=== PATIENT | male | born 1965 | race Caucasian/White ===

== ENCOUNTER 2024-08-30 09:34 | Outpatient (CLI) | payer BC, SELFPAY ==
--- OUTSIDE RECORDS SUMMARY | 2024-08-30 10:30 | XMS_ITS | Clinical Summary ---
Author Organization [facility] [address] Address [address] [place] [address] Phone Care Team Providers Care Production Welding Supervisor Name Role Phone Kerwin Sanz DO Primary Care Provider Allergies No known active allergies Medications aspirin (ANH) 81 mg Oral Tab Take 81 mg by mouth daily. Active atorvastatin (LIPITOR) 40 mg Oral tablet Take 40 mg by mouth Daily LATE. Active amLODIPine (Norvasc) 5 mg tablet Take 1 Tablet (5 mg) by mouth daily. 30 Tablet 7 02/22/2020 Active chlorthalidone (HYGROTON) 25 mg tablet Take 0.5 Tablets (12.5 mg) by mouth daily. 30 Tablet 7 02/22/2020 Active metoprolol succinate (TOPROL XL) 50 mg Extended Release 24 hour tablet TAKE 1 TABLET BY MOUTH EVERY DAY 90 Tablet 3 04/03/2022 Active Active Problems Patient Care Coordination No te Formatting of this note migh t be different from the original. Bunk Assembler--Dr. Emma Kendrick MD--Bunk Assembler ([facility] @ ) Problem Noted Date Diagnosed Date Palpitations 08/03/2012 Chest pain on exertion 08/03/2012 Hyperlipidemia with target LDL less than 100 12/2010 MVP (mitral valve prolapse) 07/24/2010 HTN (hypertension), benign 07/24/2010 BACK (dyspnea on exertion) 07/24/2010 Family History Medical History Relation Name Comments Cardiomyopathy Father Relation Name Status Comments Father Alive Mother Alive Social History Tobacco Use Types Packs/Day Years Used Date Smoking Tobacco: Never Smokeless Tobacco: Never Alcohol Use Standard Drinks/Week Comments Not Asked 0 (1 standard drink = 0.6 oz pur e alcohol) Sex and Gender Information Value Date Recorded Sex Assigned at Not on file 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 Gender Identity Not on file Sexual Orientation Not on file Last Filed Vital Signs Vital Sign Reading Time Taken Comments Blood Pressure 170/80 02/22/2020 3:44 PM CDT Pulse 91 02/22/2020 3:44 PM CDT Temperature 37.3 C (99.1 F) 02/22/2020 3:44 PM CDT Respiratory Rate - - Oxygen Saturation 97% 02/22/2020 3:44 PM CDT Inhaled Oxygen Concentration - - Weight 89.4 kg (197 lb) 02/22/2020 3:44 PM CDT Height 177.8 cm (5' 10 ) 02/22/2020 3:44 PM CDT Body Mass Index 28.27 02/22/2020 3:44 PM CDT Plan of Treatment Health Maintenance Due Date Last Done Comments DTAP/TDAP/TD VACCINES (1 - Tdap) 1982 COLORECTAL SCREENING 01/03/2008 Colorectal Cancer Screening 01/03/2008 FIT-DNA Q 3 years 01/03/2008 FIT/FOBT Q 1 year 01/03/2008 Flex Sig/CT Colonography Q 5 years 01/03/2008 ZOSTER VACCINE (1 of 2) 2013 INFLUENZA VACCINE (#1) 2023 RSV VACCINE (60+ or ) (1 - 1-dose 75+ series) 2038 PNEUMOCOCCAL VACCINE 0-49 YEARS Aged Out No longer eligible based on patient's age to complete this topic Insurance [facility] BLUE ACCESS CHOICE Care Teams Production Welding Supervisor Relationship Specialty Start Date End Date Kerwin Sanz DO PCP - General 05/04/15
[2024-08-30 19:07] LABS: Basophils Percent Auto 0.7 % (0.2-1.2); Eosinophils Absolute Auto 0.1 K/mm3 (0-0.3); Hematocrit 46.5 % (42.0-52.0); Hemoglobin 15.3 g/dL (14.0-18.0); Immature Granulocyte Absolute 0.01 K/mm3 (0.00-0.031); Immature Granulocyte Percent A 0.2 % (0-0.5); Lymphocytes Absolute Auto 1.81 K/mm3 (0.9-3.2); Lymphocytes Percent Auto 39.3 % (18.3-44.2); Mean Corpuscular HGB Conc 32.9 g/dl (32-36); Mean Corpuscular Hemoglobin 30.8 pg (26-34); Mean Corpuscular Volume 93.6 fl (80-100); Mean Platelet Volume 11.2 fl (7.4-10.4); Monocytes Absolute Auto 0.4 K/mm3 (0.1-0.6); Monocytes Percent Auto 8.9 % (2.6-8.5); Neutrophils Absolute Auto 2.2 K/mm3 (1.3-6.7); Neutrophils Percent Auto 47.9 % (45.5-73.1); Platelet Count Result 306 k/mm3 (150-375); Red Blood Count 4.97 M/mm3 (4.6-6.20); Red Cell Distribution Width 11.8 % (11.5-14.5); White Blood Count 4.6 K/mm3 (4.5-10.0)
[2024-08-30 19:30] LABS: Alanine Aminotransferase 94 U/L (6-50); Albumin Level 4.4 g/dL (3.5-5.1); Alkaline Phosphatase 76 U/L (38-126); Anion Gap 8 mmol/L (4-12); Aspartate Amino Transferase 93 U/L (17-59); Bilirubin,Total 0.9 mg/dL (0.2-1.3); Blood Urea Nitrogen 22 mg/dL (9-20); Calcium 9.4 mg/dL (8.4-10.2); Carbon Dioxide 30 mmol/L (22-30); Chloride 104 mmol/L (98-107); Cholesterol 175 mg/dL (0-200); Estimated Glomerular Filt Rate > 60; Glucose 92 mg/dL (65-110); HDL Direct 36 mg/dL; Potassium 4.7 mmol/L (3.4-5.0); Sodium 142 mmol/L (137-145); Triglycerides 95 mg/dL (<150)
[2024-08-30 19:45] LABS: LDL Cholesterol Direct 115 mg/dL
[2024-08-30 20:09] LABS: Prostate Specific Antigen 1.4 ng/mL (< OR = 4.0)
== END 2024-08-30 09:35 | disposition home or self-care (01) ==
LOC: ANHGOSHLAB 09:36
PROVIDERS: PCP Internal Medicine; Visit Provider Clinical Nurse Specialist
DX: E78.5 Hyperlipidemia, unspecified (principal); I10 Essential (primary) hypertension; R73.01 Impaired fasting glucose; I34.1 Nonrheumatic mitral (valve) prolapse; Z13.228 Encounter for screening for other metabolic disorders; Z12.5 Encounter for screening for malignant neoplasm of prostate
CPT/HCPCS: 36415; 80053; 80061; 83036; 84153; 84443; 85025; G0103

== ENCOUNTER 2024-10-12 09:51 | Outpatient (CLI) | payer BC, SELFPAY ==
--- OUTSIDE RECORDS SUMMARY | 2024-10-12 09:55 | XMS_ITS | Continuity of Care Document ---
Author Organization [facility] Address [address] [place] [address] Phone Care Team Providers Care Tomahawk Weapon System Operator Name Role Phone Conversion MD, Doctor Unavailable Unavailabl e Allergies, Adverse Reactions, Alerts Substance Reaction Status Criticality No Known Drug Allergies Other Active No I nformation Medications Medication Instructions Dosage Effective Dates (start - stop) Status Comments LIPITOR 40 MG TABLET 1 QPM - Activ e LIPITOR 80 MG TABLET 1 QPM 2007 - No Longer Active LIPITOR 40MG TABS 1 QPM - No Longer Active Advance Directives Directive Yes / No Effective Date File Name No Information Encounters Encounter Description Practice Location Reason(s) For Visit Diagnoses Date Provider Providers Copied on Encounter [facility], [address], [place], [place], [id number] , tel: [phone] Conversion Department No Information 1 Conversion Doctor. [facility] [place], [address], . [facility], [address], [place], [place], [id number] , tel: [phone] [place] LONG-TERM USE MEDS NECBENIGN HYPERTENSIONHYPER LIPIDEMIA NEC/NOS [address] [place], [place], [id number]. tel:[phone] [facility], [address], [place], [place], [address] , tel: [phone] [place] SCRN MALIG NEOP-PROSTATEMIXE D HYPERLIPIDEMIASCR EEN MAL NEOP-RECTUMHEMATU SUNDAR [address] [place], [place], [id number]. tel:[phone] [facility], [address], [place], [place], [address] , tel: [phone] [place] INT HEMORRHOID W/O COMPL [address] [place], [place], [id number]. [phone] [facility], [address], [place], [place], [address] , tel: [phone] [place] No Information [address] [place], [place], [id number]. tel:[phone] [facility], [address], [place], [place], [address] , tel: [phone] Gur[facility] IRRITABLE BOWEL SYNDROME [address] [place], [place], [address]. tel:[phone] [facility], [address], [place], [place], [address] , tel: [phone] Gurwinder SCREENING-PULMONA RY TB [address] [place], [place], [address]. tel:[phone] Family History Family Member Type Diagnosis Age At Onset No Information Payers Payer name Insurance type Covered green party ID Authoriza tion(s) No Information Social History Type Description Quantity Date Captured Comments Sex Male Smoking Status No Information Chief Complaint And Reason For Visit No Information Reason For Referral Reason For Referral No Information History Of Present Illness Encounter Date Complaint History Of Prese nt Illness No Information Functional Status Date Functional Assessmen t No Information Instructions Date Instruction Additional Infor mation No Information Assessments Type Assessment Date No Information Patient Care Teams Name Effective Dates (start - stop) Status Members No Information
--- OUTSIDE RECORDS SUMMARY | 2024-10-12 09:55 | XMS_ITS | Clinical Summary ---
Author Organization [facility] [address] Address [address] [place] [address] Phone Care Team Providers Care Script Supervisor Name Role Phone Kerwin Sanz DO [...] migh t be different from the original. Saddle Tree Stitcher--Dr. 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
--- NOTE | 2024-10-12 10:22 | ECHO_ITS ---
Patient Info Name: Segundo Garcia Age: 59 years : 1965 Gender: Male Ht: 70 in Wt: 190 lbs BSA: 2.08 m2 HR: 59 bpm BP: 196 / 96 mmHg Heart Rhythm: Sinus Rhythm Technical Quality: Fair Exam Date: 10/12/2024 10:28 AM Patient Status: O Admit Date: 10/12/2024 Exam Type: CA echo doppler color flow Complete two-dimensional, color flow and Doppler transthoracic echocardiogram is performed. Desktop Support Engineer: Suzanne Hernandez Attending Provider: Farhana Irizarry [facility] Summary 1. Left ventricular chamber dimension is normal. 2. Left ventricular systolic function is normal, estimated at 60-65. 3. There is mildly increased left ventricular wall thickness. 4. Right ventricular systolic function is normal. 5. The mitral valve has thickened leaflets. 6. There is trace mitral valve regurgitation. 7. There is mild tricuspid valve regurgitation. Left Ventricle Left ventricular chamber dimension is normal. Left ventricular systolic function is normal, estimated at 60-65. There is mildly increased left ventricular wall thickness. The left ventricular diastolic function is normal. Right Ventricle Right ventricular chamber dimension is normal. Right ventricular systolic function is normal. Left Atria Left atrial chamber dimension is normal. Right Atria Right atrial chamber dimension is normal. Atrial Septum Intact interatrial septum visualized by color flow imaging. Aortic Valve The aortic valve is trileaflet. There is no aortic valve stenosis. There is no aortic valve regurgitation. Pulmonic Valve The pulmonic valve is not well visualized. There is trace pulmonic regurgitation. Mitral Valve The mitral valve has thickened leaflets. There is trace mitral valve regurgitation. The mitral valve annulus is mildly calcified. Tricuspid Valve There is mild tricuspid valve regurgitation. Pericardium/Pleural There is no pericardial effusion. Inferior Vena Cava Normal inferior vena cava with >50% collapse upon inspiration consistent with normal right atrial pressure, 3 mmHg. Aorta The aortic root size at the sinus of Valsalva is normal. Left Ventricular Outflow Tract Name Value Normal LVOT 2D LVOT Diameter 1.9 cm LVOT Doppler LVOT Peak Velocity 103 cm/s LVOT Peak Gradient 4 mmHg LVOT Mean Gradient 2 mmHg LVOT VTI 21 cm LVOT VTI/AV VTI Ratio 0.8 LVOT Stroke Volume 57 ml LVOT CO 3.3 l/min LVOT CI 1.6 l/min/m2 Pulmonic Valve Name Value Normal RVOT Doppler RVOT Peak Velocity 90 cm/s RVOT Peak Gradient 3 mmHg PV Doppler PV Peak Velocity 134 cm/s PV Peak Gradient 7 mmHg Mitral Valve Name Value Normal MV Diastolic Function MV E Peak Velocity 106 cm/s MV A Peak Velocity 63 cm/s MV E/A 1.7 MV Decel Time (PW) 190 ms Tricuspid Valve Name Value Normal TV Regurgitation Doppler TR Peak Velocity 270 cm/s TR Peak Gradient 29 mmHg Estimated PAP/RSVP RA Pressure 3 mmHg <=5 PA Systolic Pressure 32 mmHg <36 RV Systolic Pressure 32 mmHg <36 TV Annular TDI TV Lateral Tiffanie s' Velocity 15.7 cm/s >=9.5 Aorta Name Value Normal Ascending Aorta Ao Root Diameter (MM) 2.6 cm Ao Root Diam Index (MM) 1.3 cm/m2 Aortic Valve Name Value Normal AV Doppler AV Peak Velocity 138 cm/s AV Peak Gradient 8 mmHg AV Mean Gradient 4 mmHg AV VTI 27 cm AV Area (Cont Eq VTI) 2.2 cm2 >=3.0 AV Area (Cont Eq Lance) 2.0 cm2 AV DI (Lance) 0.75 AV Regurgitation 2D LVOT Area 2.7 cm2 Ventricles Name Value Normal LV Dimensions 2D/MM IVS Diastolic Thickness (2D) 1.2 cm 0.6-1.0 IVS Diastole Thickness (MM) 0.7 cm 0.6-1.0 LVID Diastole (2D) 4.4 cm 4.2-5.8 LVID Diastole (MM) 5.7 cm 4.2-5.8 LVIW Diastolic Thickness (2D) 0.9 cm 0.6-1.0 LVIW Diastolic Thickness (MM) 1.0 cm 0.6-1.0 LVID Systole (2D) 2.7 cm 2.5-4.0 LVID Systole (MM) 3.0 cm 2.5-4.0 LVOT Diameter 1.9 cm LV Mass (2D Cubed) 160.00 g 88.00-224.00 LV Mass Index (2D Cubed) 77 g/m2 49-115 Relative Wall Thickness (2D) 0.43 <=0.42 LV Mass (MM Cubed) 187.34 g 88.00-224.00 LV Mass Index (MM Cubed) 90 g/m2 49-115 Relative Wall Thickness (MM) 0.34 LV Fractional Shortening/Ejection Fraction 2D/MM LV Fractional Shortening (2D) 39 % 25-43 LV Fractional Shortening (MM) 48 % 25-43 LV EF (MM Teichholz) 78 % LV EF (2D Teichholz) 70 % LV Diastolic Volume (4C MOD) 86 ml LV EF (4C MOD) 62 % LV Diastolic Volume (2C MOD) 59 ml LV EF (2C MOD) 46 % LV Diastolic Volume (BP MOD) 72 ml 62-150 LV Diastolic Volume Index (BP MOD) 35 ml/m2 34-74 LV Systolic Volume (BP MOD) 32 ml 21-61 LV Systolic Volume Index (BP MOD) 16 ml/m2 11-31 LV EF (BP MOD) 55 % 52-72 LV Diastolic Length (4C) 7.7 cm LV Systolic Length (4C) 6.3 cm LV Stroke Volume (4C MOD) 53 ml Atria Name Value Normal LA Dimensions LA Dimension (MM) 4.6 cm 3.0-4.0 LA Volume (4C A-L) 48 ml LA Volume (BP A-L) 55 ml RA Dimensions RA Systolic Major Virgie Length (4C) 5.1 cm 2.1-2.7 RA Area (4C) 16.5 cm2 <=18.0 Report Signatures
== END 2024-10-12 09:52 | disposition home or self-care (01) ==
PROVIDERS: PCP Internal Medicine; Visit Provider Clinical Nurse Specialist
DX: R93.1 Abnormal findings on diagnostic imaging of heart and coronary circulation (principal); I34.1 Nonrheumatic mitral (valve) prolapse
CPT/HCPCS: 93306